=== PATIENT | male | born 1985 | race Caucasian/White ===

== ENCOUNTER 2021-09-28 11:16 | Emergency (ER) | payer OTHER ==
[2021-09-28] MEDS ORDERED: IBUPROFEN600 MG PO (13:54)
== END 2021-09-28 14:05 | disposition home or self-care (01) ==
LOC: ER1 11:16
DX: S60.221A Contusion of right hand, initial encounter (principal); R07.81 Pleurodynia; R10.12 Left upper quadrant pain; Z88.0 Allergy status to penicillin; Z87.891 Personal history of nicotine dependence; V43.52XA Car driver injured in collision with other type car in traffic accident, initial encounter; W22.11XA Striking against or struck by driver side automobile airbag, initial encounter; Y92.410 Unspecified street and highway as the place of occurrence of the external cause
CPT/HCPCS: 71111; 73130; 99284; Q9967

== ENCOUNTER → 2022-03-11 | Outpatient (CLI) | payer OTHER ==
[~2022-03-11] MED LIST: IBUPROFEN600 MG PO
== END ==
LOC: RAD 10:18
DX: M79.642 Pain in left hand (principal)
CPT/HCPCS: 73130